=== PATIENT | female | born 1945 | race Caucasian/White ===

== ENCOUNTER → 2023-09-12 14:27 | Outpatient (REF) | payer OTHER, SELFPAY | LOC: WDC 14:27 | PROVIDERS: ATTENDING PHYSICIAN Internal Medicine Geriatric Medicine | DX: Z12.31 Encounter for screening mammogram for malignant neoplasm of breast (principal); M81.8 Other osteoporosis without current pathological fracture | CPT/HCPCS: 77063; 77067; 77080 ==

== ENCOUNTER → 2024-05-16 09:09 | Outpatient (REF) | payer OTHER, SELFPAY | LOC: RAD 09:09 | PROVIDERS: ATTENDING PHYSICIAN Internal Medicine Geriatric Medicine | DX: D35.1 Benign neoplasm of parathyroid gland (principal); E21.3 Hyperparathyroidism, unspecified | CPT/HCPCS: 76536 ==

== ENCOUNTER 2024-09-27 18:17 | Emergency (ER) | payer OTHER, SELFPAY ==
[2024-09-27 18:18] VITALS: BP 173/81
[2024-09-27 18:35] LABS: % Basophils 0.4 % (0-2); % Eosinophils 6.6 % (0-6); % Immature Granulocytes 0.4 % (0-0.5); % Lymphocytes 33.9 % (20.5-51.1); % Monocytes 7.2 % (1.7-9.3); % Neutrophils 51.5 % (42.2-75.2); Absolute Eosinophils 0.3 10^3/uL (0-0.7); Absolute Lymphocytes 1.7 10^3/uL (1.2-3.4); Absolute Monocytes 0.4 10^3/uL (0.1-0.6); Absolute Neutrophils 2.7 10^3/uL (1.4-6.5); Hemoglobin 11.5 g/dL (12.0-16.0); Mean Corp Hgb Conc. 31.9 g/dL (33.0-37.0); Mean Corpuscular Hgb 21.4 pg (27.0-31.0); Mean Platelet Volume 9.4 fL (7.4-10.4); Nucleated Red Blood Cells % 0 %; Platelet Count 194 10^3/uL (130-400); Red Blood Cell Count 5.37 10^6/uL (4.20-5.40); Red Cell Dist. Width 14.3 % (11.5-14.5); White Blood Cell Count 5.1 10^3/uL (4.8-10.8)
[2024-09-27 18:40] VITALS: BMI 23.4
[2024-09-27 18:45] VITALS: BP 182/84
--- NOTE | 2024-09-27 18:49 | ED.GENMED ---
History of Present Illness
General
Chief Complaint: Chest Pain
Source: patient
Exam Limitations: none
Time Seen by Provider: 09/27/24 18:41
Nursing documentation reviewed up to this point in time: agreed with
History of Present Illness
History of Present Illness:
This is a 79-year-old female with past medical history of coronary artery disease, aortic stenosis s/p TAVR, hyperlipidemia, liver cirrhosis status post transplant presents emergency department today with concerns of intermittent chest pain for the
past week. Patient reports that she was not doing anything when this first started. She states that the pain will come on intermittently throughout the day and reports that it is not particularly worse with eating or worse with exertion. Patient
states that she does cardiovascular exercise at the gym 3 days a week and states that she has been doing that since this pain started and states that this is not make her pain worse. Patient denies any dizziness or lightheadedness, denies any
syncopal episodes. Patient states that it feels similar to when she has had reflux in the past but states that it feels more severe. Patient did take Maalox at home which did seem to help her symptoms. Currently, patient has no chest pain or
epigastric pain. Patient states that her slitter scorer is Dr. Brown with [facility].
Past History
Past History
ED Past Medical History: CAD, HTN, Valvular disease and Other (Liver disease, heart murmur, hypertension)
ED Past Surgical History: Cardiac (TAVR) and Other (Cardiac catheter with 'blockage' 15 years ago. Liver transplant November 2018)
Social History
Tobacco: Non-smoker
Alcohol: None
Drug: None
Personal:
Living: with family
Employment: Retired
Family History
Family History: CAD and Other (Sister with liver transplant); Negative Early CAD
Review of Systems
Review of Systems
All Other Systems: ROS reviewed and negative except as documented in HPI and ROS
Phy Exam
Physical Exam
Physical Exam:
General: Patient is well appearing and in no acute distress; non-toxic
Skin: Warm and dry, no rashes or lesions
Head: Normocephalic, atraumatic
Eyes: Sclera non-icteric. EOMs intact.
Cardiac: Regular rate and rhythm, systolic murmur noted
Peripheral Vascular: No lower extremity swelling or edema
Pulm: Normal respiratory effort, no wheezes, rales or rhonchi
Abdomen: Epigastric tenderness to palpation noted, no guarding
Musculoskeletal: No tenderness palpation of the external chest wall
Neuro: CN II-XII intact, no focal neurologic deficits.
Psychiatric: Appropriate mood and affect.
Scores
Heart Score for Chest Pain Patients
STEMI patient?: No
History: Slightly or Non-Suspicious
ECG: Nonspecific Repolarization
Age: >/= 65 years
Risk Factors: >/= 3 Risk Factors or History of CAD
Troponin: </= Normal Limit
Heart Score for Chest Pain Patients: 5
Heart Score Risk: 20.3% MACE over next 6 weeks
Course
Orders/Labs/Results
Orders:
Orders
09/27/24 18:17
Electrocardiogram (*1) Urgent
Reason for Study: Chest Pain
EKG- Treatment ONCE
09/27/24 18:28
Complete Blood Count/With Diff Urgent
Comprehensive Metabolic Panel Urgent
Lipase Urgent
Comment: ADD ON
Troponin I Urgent
09/27/24 19:34
CR Chest - 2 Views Urgent
Comment:
Reason For Exam: chest pain
09/27/24 20:36
Mag Hydrox/Al Hydrox/Simeth [Maalox] 30 ml Phenobarb/Hyoscy/Atropine/Scop [] 10 ml PO NOW
09/27/24 20:46
Mag Hydrox/Al Hydrox/Simeth [Maalox] 30 ml .ROUTE .STK-MED ONE
Phenobarb/Hyoscy/Atropine/Scop [] 10 ml .ROUTE .STK-MED ONE
09/27/24 21:25
Electrocardiogram (*1) Urgent
Reason for Study: Chest Pain
09/27/24 21:27
Troponin I Urgent
09/27/24 21:33
Add On- LAB Urgent
Tests Added?: lipase
Abnormal Lab Results
09/27/24
18:28
Hgb 11.5 L g/dL
(12.0-16.0)
Hct 36.0 L %
(37.0-47.0)
MCV 67.0 L fL
(81.0-99.0)
MCH 21.4 L pg
(27.0-31.0)
MCHC 31.9 L g/dL
(33.0-37.0)
Eosinophils % 6.6 H %
(0-6)
Chloride 93 L mmol/L
(98-107)
BUN 25 H mg/dl
(7-17)
Creatinine 1.6 H mg/dL
(0.6-1.0)
Glucose 130 H mg/dl
(70-99)
Calcium 10.5 H mg/dl
(8.4-10.2)
AST 42 H U/L
(14-36)
ALT 52 H U/L
(0-35)
Albumin 5.1 H g/dl
(3.5-5.0)
09/27/24 18:28
09/27/24 18:28
Vital Signs
Initial and Last Documented VS:
Initial Vital Signs
Temp Pulse Resp BP Pulse Ox
97.5 F 68 16 173/81 100
09/27/24 18:18 09/27/24 18:18 09/27/24 18:18 09/27/24 18:18 09/27/24 18:18
Last Documented Vital Signs
Temp Pulse Resp BP Pulse Ox
97.5 F 55 16 161/77 97
09/27/24 18:18 09/27/24 22:00 09/27/24 20:00 09/27/24 22:00 09/27/24 22:00
MDM/Problems Addressed
Differential Diagnosis Includes:
ddx include ACS, GERD, costochondritis, pneumothorax
MDM/Problems Addressed:
This is a 79-year-old female with past medical history of coronary artery disease, aortic stenosis s/p TAVR, hyperlipidemia, liver cirrhosis status post transplant presents emergency department today with concerns of intermittent chest pain for the
past week intermittently for the past week but she states it did worsen after drinking a few cups of coffee. He is also associated with belching and epigastric pain. Currently she is pain-free. States that Maalox did help her symptoms at home.
EKG showed a bifascicular block which is not noted on prior EKGs within [employer] however did go into [employer] EMR and was able to review her cardiology note and EKG from March 2024 which is similar in appearance to today's EKG and is unchanged. In
light of no new EKG changes, 2 negative troponins, improvement in symptoms to mannitol, do believe that the symptoms are related to ongoing GERD and not related to any acute cardiac etiology. 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
and her slitter scorer. Patient stable for discharge. Return precautions discussed.
Chronic conditions affecting care:
aortic stenosis, CAD, HTN, HLP
*Pulse Oximetry
Patient hypoxic: no
*Critical Care Note
Total Time (30-74mins, 75-104mins- exclusive of procedures): Not Applicable
Data Reviewed
Review of Other/Old Records Reveals: Records (Reviewed recent colonoscopy from 11/22/2022 essentially normal multiple small diverticula however no polpys noted) and Progress Notes (Reviewed previous ER physician documentation patient seen for chest
pain, with negative cardiac workups)
Source: patient and records
Patient Management
Escalation/DeEscalation of care consider admission/obs:
Admit not indicated, patient stable for discharge, case reviewed with my attending
ED Attending Note
-
Portions of this chart may have been created with voice recognition software.� Occasional wrong word or��sound alike� substitutions may have occurred due to the inherent limitations of voice recognition software.
Discharge Plan
Departure
Patient Disposition: Home (Routine Discharge)
Date of Disposition: 09/27/24
Time of Disposition: 22:24
Patient with high blood pressure during this ER visit?: Yes
Condition: Good
Discharge Problem:
Chest pain, Epigastric abdominal pain
Instructions: Chest pain, Abdominal Pain, BLOOD PRESSURE
Prescriptions:
No Action
latanoprost 1 DROP drops
1 drp BOTH EYES HS
levothyroxine 75 MCG tablet
75 mcg PO DAILY
carvedilol 6.25 MG tablet
6.25 mg PO BID
acetaminophen 650 MG tablet
325 - 650 mg PO Q8HPRN PRN (Reason: pain)
amlodipine 10 MG tablet
10 mg PO DAILY
aspirin 81 MG tablet,chewable
81 mg PO DAILY
tacrolimus [Prograf] 1 MG capsule
2 mg PO DAILY
clonidine HCl 0.1 MG tablet
0.1 mg PO BID
cholecalciferol (vitamin D3) [Vitamin D3] 400 UNITS tablet
400 units PO DAILY
rosuvastatin 5 MG tablet
5 mg PO QPM
chlorthalidone 25 mg Tablet
12.5 mg PO DAILY
lorazepam [Ativan] 0.5 mg Tablet
0.5 mg PO Q8 PRN (Reason: anxiety)
tacrolimus 1 mg Capsule,Extended Release 24hr
1 mg PO HS
Rx Instructions:
must administer in the morning on an empty stomach, 1 hour before or 2 hours after a meal
Myrbetriq
PO DAILY
Referrals:
Álvaro Llanes MD [Family Provider] -
Juliana Galvez MD [Active] - Call in 1-3 days for appt
Activity Restrictions/Additional Instructions:
Please follow-up with your GI doctor, Dr. Galvez to address your ongoing GERD symptoms.
Please call your slitter scorer to update him on the symptoms you have been having and to request a sooner follow-up appointment.
Your troponins x2 were undetectable.
Your EKG appears unchanged compared to your EKG in March 2024.
PLEASE RETURN EMERGENCY DEPARTMENT SHOULD YOU DEVELOP ACUTE WORSENING OF HER SYMPTOMS, SHORTNESS OF BREATH, LIGHTHEADEDNESS, DIZZINESS, WEAKNESS IN ONE-SIDED BODY VERSUS OTHER, NAUSEA VOMITING, SIGNS OR SYMPTOMS WORRISOME TO YOU.
Interventions
Interventions:
*Risk Screen - Suicide Last Done: 09/27/24 18:44
*General Assessment Last Done: 09/27/24 18:44
*Neglect/Abuse Screening Last Done: 09/27/24 18:44
*ED- Fall Risk Assessment Last Done: 09/27/24 18:44
*ED COVID-19 Vaccine History Last Done: 09/27/24 18:44
ED- Cardiac Assessment Last Done: 09/27/24 18:46
Discharge Date and Time
Print Language: ALBANIAN
[2024-09-27 18:56] LABS: ALT (SGPT) 52 U/L (0-35); AST (SGOT) 42 U/L (14-36); Albumin 5.1 g/dl (3.5-5.0); Alkaline Phosphatase 46 U/L (38-126); Blood Urea Nitrogen 25 mg/dl (7-17); Calcium 10.5 mg/dl (8.4-10.2); Carbon Dioxide 30 mmol/L (22-30); Chloride 93 mmol/L (98-107); Estimated Creatinine Clearance 23 ml/min; Glucose 130 mg/dl (70-99); Potassium 4.2 mmol/L (3.5-5.1); Sodium 135 mmol/L (135-145); Total Bilirubin 0.8 mg/dl (0.2-1.3); Total Protein 7.7 g/dl (6.3-8.2); eGFR 33.01
[2024-09-27 18:59] LABS: Troponin I < 0.012 ng/ml
[2024-09-27 19:00] VITALS: BP 169/87
[2024-09-27 20:00] VITALS: BP 150/79
[2024-09-27 21:00] VITALS: BP 169/81
[2024-09-27 22:00] VITALS: BP 161/77
[2024-09-27 22:11] LABS: Troponin I < 0.012 ng/ml
[2024-09-27 22:23] LABS: Lipase 82 U/L (23-300)
== END 2024-09-27 22:32 | disposition home or self-care (01) ==
LOC: EMR 18:17
PROVIDERS: Physician Assistant; EMERGENCY PHYSICIAN Emergency Medicine; FAMILY PHYSICIAN Internal Medicine Geriatric Medicine
DX: R07.89 Other chest pain (principal); R10.13 Epigastric pain; I25.10 Atherosclerotic heart disease of native coronary artery without angina pectoris; E78.00 Pure hypercholesterolemia, unspecified; I10 Essential (primary) hypertension; I35.0 Nonrheumatic aortic (valve) stenosis; K21.9 Gastro-esophageal reflux disease without esophagitis; K74.60 Unspecified cirrhosis of liver; Z82.49 Family history of ischemic heart disease and other diseases of the circulatory system; Z94.4 Liver transplant status; Z95.2 Presence of prosthetic heart valve
CPT/HCPCS: 99283; 71046; 80053; 83690; 84484; 85025; 93005

== ENCOUNTER → 2024-11-07 14:55 | Outpatient (REF) | payer OTHER, SELFPAY | LOC: WDC 14:55 | PROVIDERS: ATTENDING PHYSICIAN Internal Medicine Geriatric Medicine | DX: Z12.31 Encounter for screening mammogram for malignant neoplasm of breast (principal) | CPT/HCPCS: 77063; 77067 ==